=== PATIENT | male | born 1960 | race Two or more races ===

== ENCOUNTER 2021-11-21 16:24 | Inpatient (IN) | payer MEDICARE ==
[~2021-11-21] VITALS: Ht 182.9 cm; Wt 88.5 kg
[2021-11-21] MEDS ORDERED: SODIUM CHLORIDE 0.9% 1,000 ML IV ONE (17:00)
[2021-11-21] MEDS ORDERED: NITROGLYCERIN OINT 1GM/INCH UDPKT TD ONE (17:00)
[2021-11-21 18:16] LABS: HEMATOCRIT. 30.4 % (42.0-52.0); HEMOGLOBIN. 9.6 g/dL (14.0-18.0); MEAN CORPUSCULAR HEMOGLOBIN 21.7 pg (28.0-32.0); MEAN CORPUSCULAR VOLUME 68.8 fL (80.0-94.0); MEAN PLATELET VOLUME 7.7 fl (7.4-10.4); PLATELET 272 x1000/uL (130-400); RED BLOOD CELL COUNT 4.42 mill/uL (4.7-6.1); RED CELL DISTRIBUTION WIDTH 18.9 % (11.6-14.6)
[2021-11-21 18:19] LABS: CHLORIDE 108 mEq/L (98-107)
[2021-11-21 18:22] LABS: INR 1.1; PROTHROMBIN TIME 11.3 sec (9.6-11.0)
[2021-11-21 18:38] LABS: PLATELET ESTIMATE NORMAL
[2021-11-21] MEDS ORDERED: MAGNESIUM/ALUMINUM HYDROXIDE/SIMETHICONE 30ML UDC PO PRN (19:45)
[2021-11-21] MEDS ORDERED: ONDANSETRON HCL 4MG/2ML INJ IV PRN (19:45)
[2021-11-21] MEDS ORDERED: ACETAMINOPHEN 325MG TABLET PO PRN (19:45)
[2021-11-21] MEDS ORDERED: GUAIFENESIN 200MG/10ML SUGAR FREE UDC PO PRN (19:45)
[2021-11-21] MEDS ORDERED: DOCUSATE SODIUM 100MG CAPSULE PO PRN (19:45)
[2021-11-21] MEDS ORDERED: CLONIDINE 0.1MG TABLET PO PRN (19:45)
[2021-11-21] MEDS ORDERED: NALOXONE HCL 0.4MG/ML VIAL IV PRN (20:15)
[2021-11-21] MEDS: MORPHINE SULFATE 2 MG/ML CPJ (NOT FOR IM USE) IV PRN (23:34)
[2021-11-22] MEDS: HYDROCODONE/ACETAMINOPHEN 5/325MG TABLET PO PRN (00:08)
[2021-11-22] MEDS: MORPHINE SULFATE 2 MG/ML CPJ (NOT FOR IM USE) IV PRN (03:23)
[2021-11-22 05:54] LABS: HEMATOCRIT. 27.4 % (42.0-52.0); HEMOGLOBIN. 8.9 g/dL (14.0-18.0); MEAN CORPUSCULAR HEMOGLOBIN 22.2 pg (28.0-32.0); MEAN CORPUSCULAR VOLUME 68.1 fL (80.0-94.0); MEAN PLATELET VOLUME 8.1 fl (7.4-10.4); PLATELET 237 x1000/uL (130-400); RED BLOOD CELL COUNT 4.02 mill/uL (4.7-6.1); RED CELL DISTRIBUTION WIDTH 18.7 % (11.6-14.6)
[2021-11-22 05:55] LABS: CHLORIDE 109 mEq/L (98-107)
[2021-11-22 06:03] LABS: LDL CHOLESTEROL 47 mg/dL (5-100)
[2021-11-22 06:04] LABS: CREATINE KINASE 284 IU/L (39-308)
[2021-11-22 06:06] LABS: HDL CHOLESTEROL 66 mg/dL (40-59)
[2021-11-22] MEDS ORDERED: HEPARIN SODIUM 1,000 UNIT/1ML VIAL IV ONE (08:33)
[2021-11-22] MEDS ORDERED: NITROGLYCERIN 50MCG/ML 10ML VIAL (CATH LAB) IV ONE (08:34)
[2021-11-22] MEDS ORDERED: NICARDIPINE 100MCG/ML 10ML VIAL (CATH LAB) IV ONE (08:34)
[2021-11-22 08:51] LABS: PLATELET ESTIMATE NORMAL
[2021-11-22 09:20] VITALS: BP 138/62
[2021-11-22 10:00] VITALS: BP 138/62
[2021-11-22] MEDS: NITROGLYCERIN OINT 1GM/INCH UDPKT TD SCH ×3 (10:00→21:29)
[2021-11-22] MEDS: SODIUM CHLORIDE 0.45% 1,000 ML IV SCH ×2 (10:49→21:33)
[2021-11-22] MEDS ORDERED: ASPIRIN 81MG EC TABLET PO NR (11:00)
[2021-11-22] MEDS ORDERED: ASPIRIN/SOD BICARB/CITRIC ACID 324MG TAB EFF ONE (11:03)
[2021-11-22] MEDS ORDERED: IODIXANOL 320MG/ML 100 ML BOTTLE IV ONE (11:03)
[2021-11-22] MEDS ORDERED: LIDOCAINE HCL 1% 30ML VIAL (10MG/ML) ONE (11:03)
[2021-11-22] MEDS ORDERED: MIDAZOLAM HCL 2 MG/2 ML VIAL ONE (11:28)
[2021-11-22] MEDS ORDERED: FENTANYL CITRATE/PF 50MCG/ML 2ML VIAL ONE (11:28)
[2021-11-22] MEDS ORDERED: MORPHINE SULFATE 2 MG/ML CPJ (NOT FOR IM USE) IV PRN (12:00)
[2021-11-22] MEDS ORDERED: ATROPINE SULFATE 1MG/10ML SYR IV PRN (12:00)
[2021-11-22] MEDS ORDERED: SODIUM CHLORIDE 0.45% 1,000 ML IV ONE (12:00)
[2021-11-22] MEDS ORDERED: ONDANSETRON HCL 4MG/2ML INJ IV PRN (12:00)
[2021-11-22] MEDS ORDERED: ACETAMINOPHEN 325MG TABLET PO PRN (12:00)
[2021-11-22 12:57] LABS: INR 1.1; PROTHROMBIN TIME 11.3 sec (9.6-11.0)
[2021-11-22] MEDS: APIXABAN 5 MG TABLET PO SCH ×2 (13:00→21:30)
[2021-11-22 15:32] VITALS: BP 112/55
[2021-11-22 20:00] VITALS: BP 122/43
[2021-11-23] VITALS: BP 109/59
[2021-11-23] MEDS: NITROGLYCERIN OINT 1GM/INCH UDPKT TD SCH ×2 (04:00→09:02)
[2021-11-23 06:32] LABS: HEMATOCRIT. 26.7 % (42.0-52.0); HEMOGLOBIN. 8.9 g/dL (14.0-18.0); MEAN CORPUSCULAR HEMOGLOBIN 22.5 pg (28.0-32.0); MEAN CORPUSCULAR VOLUME 67.7 fL (80.0-94.0); MEAN PLATELET VOLUME 7.8 fl (7.4-10.4); PLATELET 228 x1000/uL (130-400); RED BLOOD CELL COUNT 3.94 mill/uL (4.7-6.1); RED CELL DISTRIBUTION WIDTH 18.7 % (11.6-14.6)
[2021-11-23] MEDS: SODIUM CHLORIDE 0.45% 1,000 ML IV SCH (06:38)
[2021-11-23 06:56] LABS: CHLORIDE 110 mEq/L (98-107)
[2021-11-23 07:14] LABS: TOTAL IRON BINDING CAPACITY 376 ug/dL (250-450)
[2021-11-23 07:41] LABS: VITAMIN B12 SERUM 903 pg/mL (211-911)
[2021-11-23 08:09] VITALS: BP 128/50
[2021-11-23 08:21] LABS: FOLIC ACID (FOLATE) SERUM > 20.00 ng/mL (>5.38)
[2021-11-23] MEDS: APIXABAN 5 MG TABLET PO SCH (08:55)
[2021-11-23] MEDS: HYDROCODONE/ACETAMINOPHEN 5/325MG TABLET PO PRN (08:55)
[2021-11-23] MEDS ORDERED: ASPIRIN 81MG EC TABLET PO SCH (09:00)
[2021-11-23] MEDS ORDERED: LISINOPRIL 2.5MG TABLET PO SCH (09:00)
[2021-11-23] MEDS ORDERED: LACTULOSE 20G/30ML UDC PO NR (11:00)
[2021-11-23 11:09] VITALS: BP 128/50
[2021-11-23 12:40] LABS: HEPATITIS B SURFACE ANTIGEN NEGATIVE
[2021-11-23 12:48] LABS: FERRITIN < 5 ng/mL (22-322)
[2021-11-23 14:38] LABS: PLATELET ESTIMATE NORMAL
== END 2021-11-23 14:11 | disposition home or self-care (01) | DRG 282 ==
LOC: ER 16:24 → MICUSO 19:28 → EDBEDREQTM 19:31 → EDBEDREQ 19:31 → 6WST 11-22 10:12
PROVIDERS: ADMIT Hospitalist; ATTEND Hospitalist
PROC: B2111ZZ Fluoroscopy of Multiple Coronary Arteries using Low Osmolar Contrast (ICD-10-PCS; principal; 2021-11-22)
DX: I21.4 Non-ST elevation (NSTEMI) myocardial infarction (principal); D50.9 Iron deficiency anemia, unspecified; E78.5 Hyperlipidemia, unspecified; I20.9 Angina pectoris, unspecified; I48.91 Unspecified atrial fibrillation; I49.3 Ventricular premature depolarization; Z20.822 Contact with and (suspected) exposure to COVID-19; I10 Essential (primary) hypertension; Z86.73 Personal history of transient ischemic attack (TIA), and cerebral infarction without residual deficits; Z98.84 Bariatric surgery status; Z88.0 Allergy status to penicillin; Z82.49 Family history of ischemic heart disease and other diseases of the circulatory system; Z79.899 Other long term (current) drug therapy; Z86.718 Personal history of other venous thrombosis and embolism; Z95.828 Presence of other vascular implants and grafts; Z79.01 Long term (current) use of anticoagulants; Z79.82 Long term (current) use of aspirin
CPT/HCPCS: 36415; 71045; 80048; 80053; 80061; 80076; 82270; 82550; 82607; 82728; 82746; 83540; 83550; 83735; 83880; 84484; 85025; 86705; 86709; 86803; 87340; 87426; 93005; 93306; 93454; 99285; C1769; C1887; C1893; J1644; J2250; J2270; J2405; J3010; J3490; J7030; J7040; Q9967